=== PATIENT | male | born 1950 | race Caucasian/White ===

== ENCOUNTER 2018-09-25 19:21 | Emergency (ER) | payer OTHER, MEDICARE ==
[2018-09-25] MEDS ORDERED: KETOROLAC TROMETHAMINE 60 MG/2 ML SDV IM ONE (21:58)
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
[2018-09-25] MEDS ORDERED: CYCLOBENZAPRINE HCL 10 MG TABLET PO ONE (22:39)
[2018-09-25 22:54] VITALS: BP 114/67
== END 2018-09-25 22:54 | disposition home or self-care (01) ==
LOC: ER 19:21
DX: S39.012A Strain of muscle, fascia and tendon of lower back, initial encounter (principal); M54.9 Dorsalgia, unspecified; M54.5 Low back pain; R11.0 Nausea; V87.7XXA Person injured in collision between other specified motor vehicles (traffic), initial encounter; I10 Essential (primary) hypertension
CPT/HCPCS: 99283; 96372; 72110; J1885